=== PATIENT | male | born 1970 | race Caucasian/White ===

== ENCOUNTER 2016-11-21 19:28 | Emergency (ER) | payer OTHER ==
--- NOTE | 2016-11-21 20:08 | DIAGNOSTIC IMAGING REPORT ---
PROCEDURE: XR CHEST 1 VIEW INDICATION: CHEST PAIN, initial encounter TECHNIQUE: Portable AP view 07:50 p.m. COMPARISON: None. FINDINGS: Lungs are clear. Heart and mediastinum are normal. Thorax is normal. IMPRESSION: 1. Negative chest.
--- NOTE | 2016-11-21 21:14 | DIAGNOSTIC IMAGING REPORT ---
PROCEDURE: CTA THORAX ABDOMEN PELVIS INDICATION: Back and chest pain x 3 days with syncope, initial encounter. TECHNIQUE: 116 ml of Isovue 370 injected intravenously and axial images were obtained of the entire thorax, abdomen, and pelvis with 3D MIP sagittal and coronal reformations. COMPARISON: Chest x-ray 11/21/2016 FINDINGS: THORAX: Minor atherosclerosis of the aorta. No dissection or aneurysm. No evidence of pulmonary emboli. Lungs are clear. No adenopathy or effusion. Mild degenerative changes of the spine. ABDOMEN: Liver, gallbladder, pancreas, spleen, adrenal glands and kidneys are normal. Nonspecific bowel gas pattern. Bones are unremarkable. PELVIS: Minor atherosclerosis of the iliac vessels without dissection or aneurysm. Markedly distended bladder. Normal prostate. Bones are unremarkable. IMPRESSION: 1. Minor atherosclerosis without aneurysm or dissection 2. Markedly distended bladder 3. Results discussed with Dr. Richmond All CT scans at this facility use dose modulation, iterative reconstruction, and/or weight-based dosing when appropriate to reduce radiation dose to as low as reasonably achievable.
--- NOTE | 2016-11-21 22:08 | DIAGNOSTIC IMAGING REPORT ---
PROCEDURE: CT HEAD WITHOUT CONTRAST INDICATION: HEADACHE TECHNIQUE: Axial images with sagittal and coronal re-formations obtained after contrast enhanced CT chest/abdomen/pelvis. COMPARISON: None. FINDINGS: Sulci, ventricular system, and brain parenchyma are normal. Presence of IV contrast precludes exclusion of hemorrhage but there is no evidence of mass, midline shift or abnormal enhancement. Visualized mastoids and sinuses are clear. IMPRESSION: 1. Negative enhanced head CT. 2. Findings discussed with Dr. Richmond at 10:06 p.m., [place] Standard Time
--- NOTE | 2016-11-21 23:30 | ED CLINICAL REPORT ---
Clinical Report - Physicians/Mid Levels [facility] [address] [place] [address] 11/21/2016 19:27 Patient: DARIA VANG Time Seen: 19:34. Arrived- By private vehicle. Historian- patient and EMS personnel (reviewed EMS note). HISTORY OF PRESENT ILLNESS Chief Complaint: CHEST PAIN. Severity: Chest 4. Modifying factors. Not worsened by anything. Not relieved by anything. (4 pm tight in chest, weak and light headed. I didn't feel normal Definite syncope - lasting 2 minutes no injury Pt received ASA and NTG by paramedics). Is still present. It has been constant and waxing/waning. Onset during light activity. It is described as pressure and it is described as located in the central chest area. No nausea. He has had difficulty breathing. No additional chest pain. (Upper lumbar back pain x 3 days.). Similar symptoms previously: None. REVIEW OF SYSTEMS No fever, chills, cough, pedal edema or calf pain. No sore throat, blurred vision, abdominal pain, black stools or difficulty with urination. No skin rash, enlarged lymph nodes, joint pain or bloody stools. The patient experienced syncope; and has had a headache and back pain. PAST HISTORY PCP: Hans SHAFER DM, Renal, Retinopathy Ops: Appy, L knee, L shoulder x 2, Hosp: November 2015 Chest pain ([place]) Stress test supposedly negative. DKA - 2013 approx. SOCIAL HISTORY Former smoker, end date 2007. ADDITIONAL NOTES The nursing notes have been reviewed. PHYSICAL EXAM Appearance: Alert. No acute distress. Eyes: Pupils equal, round and reactive to light. ENT: Pharynx normal. Neck: Normal inspection. Neck supple. CVS: Normal heart rate and rhythm. Heart sounds normal. Respiratory: No respiratory distress. Breath sounds normal. Chest nontender. Abdomen: Soft and nontender. Bowel sounds normal. Back: Normal external inspection. Skin: Skin warm. Normal skin color. Extremities: Extremities exhibit normal ROM. No lower extremity edema. Neuro: No alteration in mental status. No motor deficit. No sensory deficit. LABS, X-RAYS, AND EKG EKG: Tachycardia. Sinus tachycardia. Normal P waves. Normal HIMA. Normal QRS complex. Normal axis. Normal ST and T waves and QT. Prior EKG unavailable. EKG #2: No acute process. No acute ischemia. Narrow-complex tachycardia (108). Sinus tachycardia. Normal P waves. Normal HIMA. Normal QRS complex. Normal axis. Normal ST and T waves. EKG unchanged when compared with prior EKG. The study has been independently viewed by me. EKG #3: No acute ischemia. Tachycardia. Normal P waves. Normal HIMA. Normal QRS complex. Normal axis. Normal ST and T waves and QT. EKG unchanged when compared with prior EKG. The study has been independently viewed by me. The EKG appears to be a good tracing. CT Head: (PROCEDURE: CT HEAD WITHOUT CONTRAST INDICATION: HEADACHE TECHNIQUE: Axial images with sagittal and coronal re-formations obtained after contrast enhanced CT chest/abdomen/pelvis. COMPARISON: None. FINDINGS: Sulci, ventricular system, and brain parenchyma are normal. Presence of IV contrast precludes exclusion of hemorrhage but there is no evidence of mass, midline shift or abnormal enhancement. Visualized mastoids and sinuses are clear. IMPRESSION: 1. Negative enhanced head CT. 2. Findings discussed with Dr. Richmond at 10:06 p.m.[facility] Time Electronically Final signed by:Giovanny Potter MD 11/21/2016 10:08:16 PM). The study was interpreted by the radiologist and discussed with the radiologist. Laboratory Tests: CBC w Diff: (ARLEEN: 11/21/2016 19:30) ( MsgRcvd 11/21/2016 20:03) Final results Test Result Flag Units (Reference) WHITE BLOOD COUNT 5.6 K/uL (4.5-11.5) RED BLOOD COUNT 5.22 M/uL (4.50-5.90) HEMOGLOBIN 14.6 gm/dL (13.5-17.5) HEMATOCRIT 43.4 % (41.0-53.0) MEAN CELL VOLUME 83 fL (80-100) MEAN CORPUSCULAR HGB 28 pg (26-34) MEAN CORPUSCULAR HGB CONC 34 g/dL (31-37) RED CELL DISTRIBUTION WIDTH 13.8 % (11.6-14.8) PLATELET COUNT 198 K/uL (150-400) NEUTROPHIL % 60.3 % (50-75) LYMPH % 29.3 % (25-40) MONO % 8.4 % (3-14) EOSINOPHIL % 1.5 % (0-4) BASOPHIL % 0.5 % (0-2) [id number]: (ARLEEN: 11/21/2016 19:35) ( [facility] 11/21/2016 21:25) Final results Test Result Flag Units (Reference) D-DIMER QUANTITATIVE < 0.27 L ug/mLFEU (0.27-0.52) The primary value of this quantitative assay relates toits negative predictive value (i.e. exclusion) of pulmonaryembolism/deep vein thrombosis/DIC.Elevated levels of d-dimer may also occur with:, age, cancer, inflammation, liver disease,post-op, infection, hematoma, coronary disease, peripheralarteriopathy, bleeding disorders and thrombolytic treatment.Results should be correlated with other clinical andradiological data.Testing Methodology: Latex Immunoassay Troponin-I: (ARLEEN: 11/21/2016 23:50) ( [facility] 11/22/2016 00:24) Final results Test Result Flag Units (Reference) TROPONIN I <0.05 L ng/mL (0.00-1.5) TROPONIN REFERENCE RANGE:<0.1 NEGATIVE0.1-1.5 INDETERMINANT>1.5 POSITIVE CPK: (ARLEEN: 11/21/2016 19:30) ( [facility] 11/21/2016 20:24) Final results Test Result Flag Units (Reference) CPK 129 U/L (24-260) TROPONIN I <0.05 L ng/mL (0.00-1.5) TROPONIN REFERENCE RANGE:<0.1 NEGATIVE0.1-1.5 INDETERMINANT>1.5 POSITIVE CMP: (ARLEEN: 11/21/2016 19:30) ( MsgRcvd 11/21/2016 20:13) Final results Test Result Flag Units (Reference) GLUCOSE 480 H mg/dL (70-110) BUN 16 mg/dL (7-18) CREATININE 1.1 mg/dL (0.6-1.3) Estimated GFR >60 mL/min Estimated GFR- >60 mL/min Note: Persistent reduction over 3 months in eGFR<60 mL/min/1.73 m2 defines CKD. Patients with eGFR values>=60 mL/min/1.73 m2 may also have CKD if evidence ofpersistent proteinuria. Additional information may be foundat [email or web address]. SODIUM 136 mmol/L (136-145) POTASSIUM 4.2 mmol/L (3.5-5.1) CHLORIDE 99 mmol/L (98-107) CARBON DIOXIDE 27 mmol/L (21-32) CALCIUM 8.9 mg/dL (8.5-10.1) TOTAL PROTEIN 7.2 g/dL (6.4-8.2) ALBUMIN 3.4 g/dL (3.3-5.0) BILIRUBIN, TOTAL 0.2 mg/dL (0.0-1.0) ALKALINE PHOSPHATASE 89 U/L (46-116) AST (SGOT) 31 U/L (15-37) ALT (SGPT) 73 U/L (12-78) LIPASE 130 U/L (73-393) AMYLASE 27 U/L (25-115) . Note - Tests: (PROCEDURE: CTA THORAX ABDOMEN PELVIS INDICATION: Back and chest pain x 3 days with syncope, initial encounter. TECHNIQUE: 116 ml of Isovue 370 injected intravenously and axial images were obtained of the entire thorax, abdomen, and pelvis with 3D MIP sagittal and coronal reformations. COMPARISON: Chest x-ray 11/21/2016 FINDINGS: THORAX: Minor atherosclerosis of the aorta. No dissection or aneurysm. No evidence of pulmonary emboli. Lungs are clear. No adenopathy or effusion. Mild degenerative changes of the spine. ABDOMEN: Liver, gallbladder, pancreas, spleen, adrenal glands and kidneys are normal. Nonspecific bowel gas pattern. Bones are unremarkable. PELVIS: Minor atherosclerosis of the iliac vessels without dissection or aneurysm. Markedly distended bladder. Normal prostate. Bones are unremarkable. IMPRESSION: 1. Minor atherosclerosis without aneurysm or dissection 2. Markedly distended bladder 3. Results discussed with Dr. Richmond All CT scans at this facility use dose modulation, iterative reconstruction, and/or weight-based dosing when appropriate to reduce radiation dose to as low as reasonably achievable.). PROGRESS AND PROCEDURES Course of Care: DDX: Chest pain Possible ACS No Thoracic aortic dissection by CT No pneumothorax or esophageal rupture No PE by Ddimer and CT Syncope - no clear cut cause 20:20 11/21/16. PAIGE 8 and Back, Chest 4 21:28 11/21/16. Discussed with Dr Bonilla [facility] hospitalist. To do at this point. CT Head and additional EKG. Problematic for [facility] admit at this point is the difficulty of obtaining timely stress testing. 22:42 11/21/16. Dr Ernie Jay Epro. Endorses prov 23:09 11/21/16. Dr Olivares ([place]) has spoken to Dr England at [facility]. Dr England will accept the patient in transport. Bed number is pending and [place] will arrange transport. 23:11 11/21/16. Chest pressure is a bit worse 5-6/10 Headache and back pain are worse. Will recheck EKG #3 and will give dilaudid. NTG paste is in place. Will draw Troponin #2 CTs pushed to [facility]. Critical care performed (55 minutes). Time is exclusive of separately billable procedures. Time includes: direct patient care, patient reassessment, coordination of patient care, interpretation of data (laboratory data, chest xrays, prior electrocardiograms and cardiac output measurements), medical consultation and documentation of patient care- see progress notes. CLINICAL IMPRESSION CHEST PAIN SYNCOPE HEADACHE BACK PAIN. DIABETES with initial poor control. (Electronically signed by Ronni Richmond MD 11/23/2016 12:18)
--- NOTE | 2016-11-21 23:30 | ED CLINICAL REPORT ---
Clinical Report - Physicians/Mid Levels [facility] [address] [place] [address] 11/21/2016 19:27 Patient: DARIA VANG Time Seen: 19:34. Arrived- By private vehicle. Historian- patient and EMS personnel (reviewed EMS note). HISTORY OF PRESENT ILLNESS Chief Complaint: CHEST PAIN. Severity: Chest 4. Modifying factors. Not worsened by anything. Not relieved by anything. (4 pm tight in chest, weak and light headed. I didn't feel normal Definite syncope - lasting 2 minutes no injury Pt received ASA and NTG by paramedics). Is still present. It has been constant and waxing/waning. Onset during light activity. It is described as pressure and it is described as located in the central chest area. No nausea. He has had difficulty breathing. No additional chest pain. (Upper lumbar back pain x 3 days.). Similar symptoms previously: None. REVIEW OF SYSTEMS No fever, chills, cough, pedal edema or calf pain. No sore throat, blurred vision, abdominal pain, black stools or difficulty with urination. No skin rash, enlarged lymph nodes, joint pain or bloody stools. The patient experienced syncope; and has had a headache and back pain. PAST HISTORY PCP: Hans SHAFER DM, Renal, Retinopathy Ops: Appy, L knee, L shoulder x 2, Hosp: November 2015 Chest pain ([place]) Stress test supposedly negative. DKA - 2013 approx. SOCIAL HISTORY Former smoker, end date 2007. ADDITIONAL NOTES The nursing notes have been reviewed. PHYSICAL EXAM Appearance: Alert. No acute distress. Eyes: Pupils equal, round and reactive to light. ENT: Pharynx normal. Neck: Normal inspection. Neck supple. CVS: Normal heart rate and rhythm. Heart sounds normal. Respiratory: No respiratory distress. Breath sounds normal. Chest nontender. Abdomen: Soft and nontender. Bowel sounds normal. Back: Normal external inspection. Skin: Skin warm. Normal skin color. Extremities: Extremities exhibit normal ROM. No lower extremity edema. Neuro: No alteration in mental status. No motor deficit. No sensory deficit. LABS, X-RAYS, AND EKG EKG: Tachycardia. Sinus tachycardia. Normal P waves. Normal HIMA. Normal QRS complex. Normal axis. Normal ST and T waves and QT. Prior EKG unavailable. EKG #2: No acute process. No acute ischemia. Narrow-complex tachycardia (108). Sinus tachycardia. Normal P waves. Normal HIMA. Normal QRS complex. Normal axis. Normal ST and T waves. EKG unchanged when compared with prior EKG. The study has been independently viewed by me. EKG #3: No acute ischemia. Tachycardia. Normal P waves. Normal HIMA. Normal QRS complex. Normal axis. Normal ST and T waves and QT. EKG unchanged when compared with prior EKG. The study has been independently viewed by me. The EKG appears to be a good tracing. CT Head: (PROCEDURE: CT HEAD WITHOUT CONTRAST INDICATION: HEADACHE TECHNIQUE: Axial images with sagittal and coronal re-formations obtained after contrast enhanced CT chest/abdomen/pelvis. COMPARISON: None. FINDINGS: Sulci, ventricular system, and brain parenchyma are normal. Presence of IV contrast precludes exclusion of hemorrhage but there is no evidence of mass, midline shift or abnormal enhancement. Visualized mastoids and sinuses are clear. IMPRESSION: 1. Negative enhanced head CT. 2. Findings discussed with Dr. Richmond at 10:06 p.m.[facility] Time Electronically Final signed by:Giovanny Potter MD 11/21/2016 10:08:16 PM). The study was interpreted by the radiologist and discussed with the radiologist. Laboratory Tests: CBC w Diff: (ARLEEN: 11/21/2016 19:30) ( MsgRcvd 11/21/2016 20:03) Final results Test Result Flag Units (Reference) WHITE BLOOD COUNT 5.6 K/uL (4.5-11.5) RED BLOOD COUNT 5.22 M/uL (4.50-5.90) HEMOGLOBIN 14.6 gm/dL (13.5-17.5) HEMATOCRIT 43.4 % (41.0-53.0) MEAN CELL VOLUME 83 fL (80-100) MEAN CORPUSCULAR HGB 28 pg (26-34) MEAN CORPUSCULAR HGB CONC 34 g/dL (31-37) RED CELL DISTRIBUTION WIDTH 13.8 % (11.6-14.8) PLATELET COUNT 198 K/uL (150-400) NEUTROPHIL % 60.3 % (50-75) LYMPH % 29.3 % (25-40) MONO % 8.4 % (3-14) EOSINOPHIL % 1.5 % (0-4) BASOPHIL % 0.5 % (0-2) [id number]: (ARLEEN: 11/21/2016 19:35) ( [facility] 11/21/2016 21:25) Final results Test Result Flag Units (Reference) D-DIMER QUANTITATIVE < 0.27 L ug/mLFEU (0.27-0.52) The primary value of this quantitative assay relates toits negative predictive value (i.e. exclusion) of pulmonaryembolism/deep vein thrombosis/DIC.Elevated levels of d-dimer may also occur with:, age, cancer, inflammation, liver disease,post-op, infection, hematoma, coronary disease, peripheralarteriopathy, bleeding disorders and thrombolytic treatment.Results should be correlated with other clinical andradiological data.Testing Methodology: Latex Immunoassay Troponin-I: (ARLEEN: 11/21/2016 23:50) ( [facility] 11/22/2016 00:24) Final results Test Result Flag Units (Reference) TROPONIN I <0.05 L ng/mL (0.00-1.5) TROPONIN REFERENCE RANGE:<0.1 NEGATIVE0.1-1.5 INDETERMINANT>1.5 POSITIVE CPK: (ARLEEN: 11/21/2016 19:30) ( [facility] 11/21/2016 20:24) Final results Test Result Flag Units (Reference) CPK 129 U/L (24-260) TROPONIN I <0.05 L ng/mL (0.00-1.5) TROPONIN REFERENCE RANGE:<0.1 NEGATIVE0.1-1.5 INDETERMINANT>1.5 POSITIVE CMP: (ARLEEN: 11/21/2016 19:30) ( MsgRcvd 11/21/2016 20:13) Final results Test Result Flag Units (Reference) GLUCOSE 480 H mg/dL (70-110) BUN 16 mg/dL (7-18) CREATININE 1.1 mg/dL (0.6-1.3) Estimated GFR >60 mL/min Estimated GFR- >60 mL/min Note: Persistent reduction over 3 months in eGFR<60 mL/min/1.73 m2 defines CKD. Patients with eGFR values>=60 mL/min/1.73 m2 may also have CKD if evidence ofpersistent proteinuria. Additional information may be foundat [email or web address]. SODIUM 136 mmol/L (136-145) POTASSIUM 4.2 mmol/L (3.5-5.1) CHLORIDE 99 mmol/L (98-107) CARBON DIOXIDE 27 mmol/L (21-32) CALCIUM 8.9 mg/dL (8.5-10.1) TOTAL PROTEIN 7.2 g/dL (6.4-8.2) ALBUMIN 3.4 g/dL (3.3-5.0) BILIRUBIN, TOTAL 0.2 mg/dL (0.0-1.0) ALKALINE PHOSPHATASE 89 U/L (46-116) AST (SGOT) 31 U/L (15-37) ALT (SGPT) 73 U/L (12-78) LIPASE 130 U/L (73-393) AMYLASE 27 U/L (25-115) . Note - Tests: (PROCEDURE: CTA THORAX ABDOMEN PELVIS INDICATION: Back and chest pain x 3 days with syncope, initial encounter. TECHNIQUE: 116 ml of Isovue 370 injected intravenously and axial images were obtained of the entire thorax, abdomen, and pelvis with 3D MIP sagittal and coronal reformations. COMPARISON: Chest x-ray 11/21/2016 FINDINGS: THORAX: Minor atherosclerosis of the aorta. No dissection or aneurysm. No evidence of pulmonary emboli. Lungs are clear. No adenopathy or effusion. Mild degenerative changes of the spine. ABDOMEN: Liver, gallbladder, pancreas, spleen, adrenal glands and kidneys are normal. Nonspecific bowel gas pattern. Bones are unremarkable. PELVIS: Minor atherosclerosis of the iliac vessels without dissection or aneurysm. Markedly distended bladder. Normal prostate. Bones are unremarkable. IMPRESSION: 1. Minor atherosclerosis without aneurysm or dissection 2. Markedly distended bladder 3. Results discussed with Dr. Richmond All CT scans at this facility use dose modulation, iterative reconstruction, and/or weight-based dosing when appropriate to reduce radiation dose to as low as reasonably achievable.). PROGRESS AND PROCEDURES Course of Care: DDX: Chest pain Possible ACS No Thoracic aortic dissection by CT No pneumothorax or esophageal rupture No PE by Ddimer and CT Syncope - no clear cut cause 20:20 11/21/16. PAIGE 8 and Back, Chest 4 21:28 11/21/16. Discussed with Dr Bonilla [facility] hospitalist. To do at this point. CT Head and additional EKG. Problematic for [facility] admit at this point is the difficulty of obtaining timely stress testing. 22:42 11/21/16. Dr Ernie Jay Epro. Endorses prov 23:09 11/21/16. Dr Olivares ([place]) has spoken to Dr England at [facility]. Dr England will accept the patient in transport. Bed number is pending and [place] will arrange transport. 23:11 11/21/16. Chest pressure is a bit worse 5-6/10 Headache and back pain are worse. Will recheck EKG #3 and will give dilaudid. NTG paste is in place. Will draw Troponin #2 CTs pushed to [place]. Critical care performed (55 minutes). Time is exclusive of separately billable procedures. Time includes: direct patient care, patient reassessment, coordination of patient care, interpretation of data (laboratory data, chest xrays, prior electrocardiograms and cardiac output measurements), medical consultation and documentation of patient care- see progress notes. CLINICAL IMPRESSION CHEST PAIN SYNCOPE HEADACHE BACK PAIN. DIABETES with initial poor control. (Electronically signed by Ronni Richmond MD 11/23/2016 12:18)
--- NOTE | 2016-11-21 23:30 | ED NURSING NOTES ---
Clinical Report - Nurses [facility] [address] [place] [address] 11/21/2016 19:27 [id number] Triage time 19:30 Nov 21 2016. Acuity: LEVEL 3. Chief Complaint: CHEST PAIN. --19:33 Ovidio Ibarra R.N. 19:30 11/21/16. BP: 130/80. HR: 124. RR: 18. O2 saturation: 96%. Temp: 98.5 F. Pain level now 12/28. --19:33 Ovidio Ibarra R.N. Weight: 113.3 kg. Height/Length: 70 inches. BMI: 35.8. --19:32 Ovidio Ibarra R.N. Medications HumuLIN N Subcutaneous. --19:31 Ovidio Ibarra R.N. humal. --19:31 Ovidio Ibarra R.N. HumaLOG Subcutaneous. --19:31 Ovidio Ibarra R.N. Lisinopril Oral. --19:31 Ovidio Ibarra R.N. PARoxetine HCl Oral. --19:31 Ovidio Ibarra R.N. Omeprazole Oral. --19:32 Ovidio Ibarra R.N. Allergies Phenergan. --19:32 Ovidio Ibarra R.N. History Arrived by private vehicle. ( pt witnessed syncopal event, cbg per medic 470). This started just prior to arrival. 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 SOCIAL HX: Never smoker. No alcohol use or drug use. --19:33 Ovidio Ibarra R.N. Interventions ID band on patient. To treatment room. --19:33 Ovidio Ibarra R.N. PHYSICAL ASSESSMENT GENERAL / NEURO / PSYCH: Alert. Oriented X 4. Appears in pain. RESPIRATORY: Respirations not labored. Breath sounds within normal limits. CVS: Normal sinus rhythm noted. GI / : Abdomen nontender. ( abd distended). EXTREMITIES: No lower extremity edema. SKIN: Skin is warm and dry. Skin is non-tender. --20:12 Ovidio Ibarra R.N. ( assessment performed at time of triage, back charted). --20:13 Ovidio Ibarra R.N. NURSING PROGRESS NOTES 19:34 11/21/2016 Site #1 started prior to arrival by EMS via IV with an 20g angiocath, with aseptic technique and good blood return; one attempt. Blood drawn: rainbow set. Labeled in the presence of the patient. Saline lock flushed. --19:34 Ovidio Ibarra R.N. 19:50 11/21/2016 Started bag #1 1000 mL IV Fluids IV NS (Saline); at 100 mL/hr over 10 hour(s) via site #1. Allergies verified and confirmed 5 rights. IV patency established. IV site checked: no pain, redness, or swelling. IV flushed thoroughly pre- and post-medication administration. Completed per protocol. --19:50 Ovidio Ibarra R.N. EKG time: (1936 PM). EKG was ordered, performed by a tech and shown to the ED physician. --20:06 Verna Yuen Finger stick glucose: 417 mg/dL @ 1940. --20:06 Verna Yuen 20:11 11/21/16. BP: 118/64. HR: 117. O2 saturation: 97%. --20:12 Ovidio Ibarra R.N. 20:24 11/21/2016 Site #2 started via IV in the left antecubital space with an 18g angiocath, with aseptic technique and good blood return; one attempt. Saline lock flushed with saline. --20:24 Ovidio Ibarra R.N. 20:40 11/21/2016 Zofran (Ondansetron HCl) IVP 4 mg given. via site #1. Allergies verified and confirmed 5 rights. IV patency established. IV site checked: no pain, redness, or swelling. IV flushed thoroughly pre- and post-medication administration. IVP given by RN. --20:40 Ovidio Ibarra R.N. 20:40 11/21/2016 Insulin REG IVP 8 unit given over 2 minute(s) via site #1. Allergies verified and confirmed 5 rights. IV patency established. IV site checked: no pain, redness, or swelling. IV flushed thoroughly pre- and post-medication administration. IVP given by RN (dose confirmed by KRISTAN devine). --20:40 Ovidio Ibarra R.N. 20:40 11/21/2016 Dilaudid (HYDROmorphone HCl PF) IVP 1 mg given over 2 minute(s) via site #1. Allergies verified, confirmed 5 rights and sedative warning given to the patient. IV patency established. IV site checked: no pain, redness, or swelling. IV flushed thoroughly pre- and post-medication administration. IVP given by RN. --20:40 Ovidio Ibarra R.N. 20:10 11/21/16. BP: 122/69. HR: 113. RR: 18. O2 saturation: 98%. --20:42 Ovidio Ibarra R.N. 20:46 11/21/2016 Insulin REG IVP Co-signature: dosage, concentration and rate verified. --20:46 Luis Fernando Renee R.N. Finger stick glucose: 312 21:15 Nov 21 2016. --21:15 Ovidio Ibarra R.N. 21:15 11/21/16. BP: 134/82. HR: 111. O2 saturation: 95%. --21:15 Ovidio Ibarra R.N. 21:25 11/21/2016 Dilaudid (HYDROmorphone HCl PF) IVP 0.5 mg given over 2 minute(s) via site #2. Allergies verified, confirmed 5 rights and sedative warning given to the patient. IV patency established. IV site checked: no pain, redness, or swelling. IV flushed thoroughly pre- and post-medication administration. IVP given by RN. --21:25 Ovidio Ibarra R.N. EKG time: (2nd EKG @ 2142 PM). EKG was ordered, performed by a tech and shown to the ED physician. --21:43 Verna Yuen 22:00 11/21/16. BP: 155/75. HR: 108. O2 saturation: 95%. --22:00 Ovidio Ibarra R.N. 22:00 11/21/2016 NITROGLYCERIN PASTE Topical 1 inch. Applied to the left chest. Allergies verified and confirmed 5 rights. --22:00 Ovidio Ibarra R.N. 22:00 11/21/16. BP: 130/65. RR: 109. O2 saturation: 97%. --22:01 Ovidio Ibarra R.N. 22:05 11/21/16. BP: 132/69. --22:06 Ovidio Ibarra R.N. 22:59 11/21/16. BP: 113/59. HR: 110. O2 saturation: 94%. --23:00 Ovidio Ibarra R.N. 22:45 11/21/2016 Site #1 removed. Bandaid applied (iv became dislodged after transfer from sd). --23:10 Ovidio Ibarra R.N. 23:10 11/21/2016 Dilaudid (HYDROmorphone HCl PF) IVP 0.5 mg given over 2 minute(s) via site #2. Allergies verified, confirmed 5 rights and sedative warning given to the patient. IV patency established. IV site checked: no pain, redness, or swelling. IV flushed thoroughly pre- and post-medication administration. IVP given by RN. --23:10 Ovidio Ibarra R.N. EKG time: (2321 PM). EKG was ordered, performed by a tech and shown to the ED physician. ( 3rd EKG). --23:22 Verna Yuen Finger stick glucose: 344 mg/dL 00:00. --00:04 Verna Yuen. DISPOSITION / DISCHARGE Report was given to a nurse via a phone call. Report included patient's care, treatment, medications, reviewed medication reconcilliation, and condition (including any recent changes or anticipated changes). All questions were answered. Report was acknowledged. (report to KRISTAN Austin). Patient's personal items include: shirt and pants, cellphone; items were placed in belongings bag. --00:01 Ovidio Ibarra R.N. ( CBG 344). --00:03 Ovidio Ibarra R.N. 00:02 11/22/16. BP: 120/69. HR: 102. RR: 18. O2 saturation: 95%. Temp: 98.2 F. Pain level now 01/27. --00:03 Ovidio Ibarra R.N. Departure time: 0025. ( ems arrived to transport pt). --00:27 Ovidio Ibarra R.N. Locked/Released at 11/22/2016 2:22 by Channing Brar R.N.
--- NOTE | 2016-11-21 23:30 | ED NURSING NOTES ---
Clinical Report - Nurses [facility] [address] [place] [address] 11/21/2016 19:27 [id number] Triage time 19:30 Nov 21 2016. Acuity: LEVEL 3. Chief Complaint: CHEST PAIN. --19:33 Ovidio Ibarra R.N. 19:30 11/21/16. BP: 130/80. HR: 124. RR: 18. O2 saturation: 96%. Temp: 98.5 F. Pain level now 12/28. --19:33 Ovidio Ibarra R.N. Weight: 113.3 kg. Height/Length: 70 inches. BMI: 35.8. --19:32 Ovidio Ibarra R.N. Medications HumuLIN N Subcutaneous. --19:31 Ovidio Ibarra R.N. humal. --19:31 Ovidio Ibarra R.N. HumaLOG Subcutaneous. --19:31 Ovidio Ibarra R.N. Lisinopril Oral. --19:31 Ovidio Ibarra R.N. PARoxetine HCl Oral. --19:31 Ovidio Ibarra R.N. Omeprazole Oral. --19:32 Ovidio Ibarra R.N. Allergies Phenergan. --19:32 Ovidio Ibarra R.N. History Arrived by private vehicle. ( pt witnessed syncopal event, cbg per medic 470). This started just prior to arrival. 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 SOCIAL HX: Never smoker. No alcohol use or drug use. --19:33 Ovidio Ibarra R.N. Interventions ID band on patient. To treatment room. --19:33 Ovidio Ibarra R.N. PHYSICAL ASSESSMENT GENERAL / NEURO / PSYCH: Alert. Oriented X 4. Appears in pain. RESPIRATORY: Respirations not labored. Breath sounds within normal limits. CVS: Normal sinus rhythm noted. GI / : Abdomen nontender. ( abd distended). EXTREMITIES: No lower extremity edema. SKIN: Skin is warm and dry. Skin is non-tender. --20:12 Ovidio Ibarra R.N. ( assessment performed at time of triage, back charted). --20:13 Ovidio Ibarra R.N. NURSING PROGRESS NOTES 19:34 11/21/2016 Site #1 started prior to arrival by EMS via IV with an 20g angiocath, with aseptic technique and good blood return; one attempt. Blood drawn: rainbow set. Labeled in the presence of the patient. Saline lock flushed. --19:34 Ovidio Ibarra R.N. 19:50 11/21/2016 Started bag #1 1000 mL IV Fluids IV NS (Saline); at 100 mL/hr over 10 hour(s) via site #1. Allergies verified and confirmed 5 rights. IV patency established. IV site checked: no pain, redness, or swelling. IV flushed thoroughly pre- and post-medication administration. Completed per protocol. --19:50 Ovidio Ibarra R.N. EKG time: (1936 PM). EKG was ordered, performed by a tech and shown to the ED physician. --20:06 Verna Yuen Finger stick glucose: 417 mg/dL @ 1940. --20:06 Verna Yuen 20:11 11/21/16. BP: 118/64. HR: 117. O2 saturation: 97%. --20:12 Ovidio Ibarra R.N. 20:24 11/21/2016 Site #2 started via IV in the left antecubital space with an 18g angiocath, with aseptic technique and good blood return; one attempt. Saline lock flushed with saline. --20:24 Ovidio Ibarra R.N. 20:40 11/21/2016 Zofran (Ondansetron HCl) IVP 4 mg given. via site #1. Allergies verified and confirmed 5 rights. IV patency established. IV site checked: no pain, redness, or swelling. IV flushed thoroughly pre- and post-medication administration. IVP given by RN. --20:40 Ovidio Ibarra R.N. 20:40 11/21/2016 Insulin REG IVP 8 unit given over 2 minute(s) via site #1. Allergies verified and confirmed 5 rights. IV patency established. IV site checked: no pain, redness, or swelling. IV flushed thoroughly pre- and post-medication administration. IVP given by RN (dose confirmed by KRISTAN devine). --20:40 Ovidio Ibarra R.N. 20:40 11/21/2016 Dilaudid (HYDROmorphone HCl PF) IVP 1 mg given over 2 minute(s) via site #1. Allergies verified, confirmed 5 rights and sedative warning given to the patient. IV patency established. IV site checked: no pain, redness, or swelling. IV flushed thoroughly pre- and post-medication administration. IVP given by RN. --20:40 Ovidio Ibarra R.N. 20:10 11/21/16. BP: 122/69. HR: 113. RR: 18. O2 saturation: 98%. --20:42 Ovidio Ibarra R.N. 20:46 11/21/2016 Insulin REG IVP Co-signature: dosage, concentration and rate verified. --20:46 Luis Fernando Renee R.N. Finger stick glucose: 312 21:15 Nov 21 2016. --21:15 Ovidio Ibarra R.N. 21:15 11/21/16. BP: 134/82. HR: 111. O2 saturation: 95%. --21:15 Ovidio Ibarra R.N. 21:25 11/21/2016 Dilaudid (HYDROmorphone HCl PF) IVP 0.5 mg given over 2 minute(s) via site #2. Allergies verified, confirmed 5 rights and sedative warning given to the patient. IV patency established. IV site checked: no pain, redness, or swelling. IV flushed thoroughly pre- and post-medication administration. IVP given by RN. --21:25 Ovidio Ibarra R.N. EKG time: (2nd EKG @ 2142 PM). EKG was ordered, performed by a tech and shown to the ED physician. --21:43 Verna Yuen 22:00 11/21/16. BP: 155/75. HR: 108. O2 saturation: 95%. --22:00 Ovidio Ibarra R.N. 22:00 11/21/2016 NITROGLYCERIN PASTE Topical 1 inch. Applied to the left chest. Allergies verified and confirmed 5 rights. --22:00 Ovidio Ibarra R.N. 22:00 11/21/16. BP: 130/65. RR: 109. O2 saturation: 97%. --22:01 Ovidio Ibarra R.N. 22:05 11/21/16. BP: 132/69. --22:06 Ovidio Ibarra R.N. 22:59 11/21/16. BP: 113/59. HR: 110. O2 saturation: 94%. --23:00 Ovidio Ibarra R.N. 22:45 11/21/2016 Site #1 removed. Bandaid applied (iv became dislodged after transfer from vt). --23:10 Ovidio Ibarra R.N. 23:10 11/21/2016 Dilaudid (HYDROmorphone HCl PF) IVP 0.5 mg given over 2 minute(s) via site #2. Allergies verified, confirmed 5 rights and sedative warning given to the patient. IV patency established. IV site checked: no pain, redness, or swelling. IV flushed thoroughly pre- and post-medication administration. IVP given by RN. --23:10 Ovidio Ibarra R.N. EKG time: (2321 PM). EKG was ordered, performed by a tech and shown to the ED physician. ( 3rd EKG). --23:22 Verna Yuen Finger stick glucose: 344 mg/dL 00:00. --00:04 Verna Yuen. DISPOSITION / DISCHARGE Report was given to a nurse via a phone call. Report included patient's care, treatment, medications, reviewed medication reconcilliation, and condition (including any recent changes or anticipated changes). All questions were answered. Report was acknowledged. (report to KRISTAN Austin). Patient's personal items include: shirt and pants, cellphone; items were placed in belongings bag. --00:01 Ovidio Ibarra R.N. ( CBG 344). --00:03 Ovidio Ibarra R.N. 00:02 11/22/16. BP: 120/69. HR: 102. RR: 18. O2 saturation: 95%. Temp: 98.2 F. Pain level now 01/27. --00:03 Ovidio Ibarra R.N. Departure time: 0025. ( ems arrived to transport pt). --00:27 Ovidio Ibarra R.N. Locked/Released at 11/22/2016 2:22 by Channing Brar R.N.
--- NOTE | 2016-11-21 23:30 | ED ORDER SUMMARY ---
..... Patient: DARIA VANG OrderSheet [facility] VisitID: [id number] [place] [address] 46y, M Registration Date/Time: 11/21/2016 ORDER SHEET Weight: 113.3 kg Allergies: Phenergan GENERAL ORDERS: CBC w Diff Urgent (19:34 11/21/2016 DBeyer R.N. per protocol) (Ack 19:41 CHagerty ER Slip Tender) CMP Urgent (19:34 11/21/2016 DBeyer R.N. per protocol) (Ack 19:41 CHagerty ER Slip Tender) Amylase Urgent (19:34 11/21/2016 DBeyer R.N. per protocol) (Ack 19:41 CHagerty ER Slip Tender) Lipase Urgent (19:34 11/21/2016 DBeyer R.N. per protocol) (Ack 19:41 CHagerty ER Slip Tender) EKG - ER Stat (19:34 11/21/2016 DBeyer R.N. per protocol) (Ack 19:41 CHagerty ER Slip Tender) (19:54 CHagerty ER Slip Tender) POC Glucose (19:34 11/21/2016 DBeyer R.N. per protocol) (Ack 19:41 CHagerty ER Slip Tender) (21:19 Trever) Troponin-I Urgent (19:35 11/21/2016 Duane VYAS) (Ack 19:41 CHagerty ER Slip Tender) CPK Urgent (19:35 11/21/2016 Duane VYAS) (Ack 19:41 CHagerty ER Slip Tender) Chest 1V Urgent (19:36 11/21/2016 Duane VYAS) (Ack 19:41 CHagerty ER Slip Tender) (19:52 CHagerty ER Slip Tender) CTA Thorax/Abdomen/Pelvis (Yes) (don't know) Urgent (20:11 11/21/2016 Duane VYAS) (Ack 20:12 CHagerty ER Slip Tender) (20:50 omanelli R.N.) D-Dimer Urgent (20:21 11/21/2016 Duane VYAS) (20:27 CHagerty ER Slip Tender) POC Glucose (#2) (21:14 11/21/2016 Duane VYAS) (21:18 DBeyer R.N.) CT Head wo Cont Urgent (21:28 11/21/2016 Duane VYAS) (Ack 21:29 CHagerty ER Slip Tender) (22:27 CHategekimana) EKG - ER Repeat Stat (21:28 11/21/2016 Duane VYAS) (Ack 21:29 CHagerty ER Slip Tender) (21:42 CHategekimana) Troponin-I (repeat, new blood draw.) Urgent (23:12 11/21/2016 Duane VYAS) (Ack 23:15 CHagerty ER Slip Tender) (23:54 CHagerty ER Slip Tender) EKG - ER Repeat (#3) Stat (23:13 11/21/2016 Duane VYAS) (23:15 CHagerty ER Slip Tender) MEDICATION ORDERS: NitroGLYCERIN Paste Topical 1 in. (NOW) (21:34 11/21/2016 Duane VYAS) (22:00 DBeyer R.N.) IV FLUIDS: IV Saline Lock (19:34 11/21/2016 DBeyer R.N. per protocol) (19:34 DBeyer R.N.) IV NS : initial bolus none -, then TKO - (NOW) (19:49 11/21/2016 DBeyer R.N. per protocol) (19:50 DBeyer R.N.) Insulin Reg IV 8 units (HIGH ALERT MEDICATION, NOW) (20:15 11/21/2016 Duane VYAS) (20:40 DBeyer R.N.) Dilaudid IV 1 mg + 0.5 (NOW) (20:19 11/21/2016 Duane VYAS) (20:40 DBeyer R.N.) Zofran IV 4 mg (NOW) (20:20 11/21/2016 Duane VYAS) (20:40 DBeyer R.N.) Dilaudid IV 0.5 mg (HIGH ALERT MEDICATION, NOW) (23:04 11/21/2016 DBeyer R.N. verbal order read back to Duane VYAS) (23:10 DBeyer R.N.) ORDER SHEET NOTES: [Electronically signed by Channing Brar R.N. (02:22 11/22/2016)] [Electronically signed by Ronni Richmond MD (12:18 11/23/2016)] [Electronically locked/signed by Channing Brar R.N. (02:22 11/22/2016)]
--- NOTE | 2016-11-21 23:30 | ED ORDER SUMMARY ---
..... Patient: DARIA VANG OrderSheet [facility] VisitID: [id number] [place] [address] 46y, M Registration Date/Time: 11/21/2016 ORDER SHEET Weight: 113.3 kg Allergies: Phenergan GENERAL ORDERS: CBC w Diff Urgent (19:34 11/21/2016 DBeyer R.N. per protocol) (Ack 19:41 CHagerty ER Assistant Head Cashier) CMP Urgent (19:34 11/21/2016 DBeyer R.N. per protocol) (Ack 19:41 CHagerty ER Assistant Head Cashier) Amylase Urgent (19:34 11/21/2016 DBeyer R.N. per protocol) (Ack 19:41 CHagerty ER Assistant Head Cashier) Lipase Urgent (19:34 11/21/2016 DBeyer R.N. per protocol) (Ack 19:41 CHagerty ER Assistant Head Cashier) EKG - ER Stat (19:34 11/21/2016 DBeyer R.N. per protocol) (Ack 19:41 CHagerty ER Assistant Head Cashier) (19:54 CHagerty ER Assistant Head Cashier) POC Glucose (19:34 11/21/2016 DBeyer R.N. per protocol) (Ack 19:41 CHagerty ER Assistant Head Cashier) (21:19 Trever) Troponin-I Urgent (19:35 11/21/2016 Duane VYAS) (Ack 19:41 CHagerty ER Assistant Head Cashier) CPK Urgent (19:35 11/21/2016 Duane VYAS) (Ack 19:41 CHagerty ER Assistant Head Cashier) Chest 1V Urgent (19:36 11/21/2016 Duane VYAS) (Ack 19:41 CHagerty ER Assistant Head Cashier) (19:52 CHagerty ER Assistant Head Cashier) CTA Thorax/Abdomen/Pelvis (Yes) (don't know) Urgent (20:11 11/21/2016 Duane VYAS) (Ack 20:12 CHagerty ER Assistant Head Cashier) (20:50 omanelli R.N.) D-Dimer Urgent (20:21 11/21/2016 Duane VYAS) (20:27 CHagerty ER Assistant Head Cashier) POC Glucose (#2) (21:14 11/21/2016 Duane VYAS) (21:18 DBeyer R.N.) CT Head wo Cont Urgent (21:28 11/21/2016 Duane VYAS) (Ack 21:29 CHagerty ER Assistant Head Cashier) (22:27 CHategekimana) EKG - ER Repeat Stat (21:28 11/21/2016 Duane VYAS) (Ack 21:29 CHagerty ER Assistant Head Cashier) (21:42 CHategekimana) Troponin-I (repeat, new blood draw.) Urgent (23:12 11/21/2016 Duane VYAS) (Ack 23:15 CHagerty ER Assistant Head Cashier) (23:54 CHagerty ER Assistant Head Cashier) EKG - ER Repeat (#3) Stat (23:13 11/21/2016 Duane VYAS) (23:15 CHagerty ER Assistant Head Cashier) MEDICATION ORDERS: NitroGLYCERIN Paste Topical 1 in. (NOW) (21:34 11/21/2016 Duane VYAS) (22:00 DBeyer R.N.) IV FLUIDS: IV Saline Lock (19:34 11/21/2016 DBeyer R.N. per protocol) (19:34 DBeyer R.N.) IV NS : initial bolus none -, then TKO - (NOW) (19:49 11/21/2016 DBeyer R.N. per protocol) (19:50 DBeyer R.N.) Insulin Reg IV 8 units (HIGH ALERT MEDICATION, NOW) (20:15 11/21/2016 Duane VYAS) (20:40 DBeyer R.N.) Dilaudid IV 1 mg + 0.5 (NOW) (20:19 11/21/2016 Duane VYAS) (20:40 DBeyer R.N.) Zofran IV 4 mg (NOW) (20:20 11/21/2016 Duane VYAS) (20:40 DBeyer R.N.) Dilaudid IV 0.5 mg (HIGH ALERT MEDICATION, NOW) (23:04 11/21/2016 DBeyer R.N. verbal order read back to Duane VYAS) (23:10 DBeyer R.N.) ORDER SHEET NOTES: [Electronically signed by Channing Brar R.N. (02:22 11/22/2016)] [Electronically signed by Ronni Richmond MD (12:18 11/23/2016)] [Electronically locked/signed by Channing Brar R.N. (02:22 11/22/2016)]
--- NOTE | 2016-11-23 12:19 | ED MED RECONCILIATION SUMMARY ---
Patient: DARIA VANG Medication Reconciliation Report [facility] VisitID: [id number] [address] [place] [address] 46y, M Registration Date/Time: 11/21/2016 Weight: 113.3 kg Height/Length: 70 in. BMI: 35.8 ALLERGIES: Phenergan The patient's Home Medications are listed below: THE FOLLOWING MEDICATIONS NEED TO BE RECONCILED: humal HumaLOG Subcutaneous HumuLIN N Subcutaneous Lisinopril Oral Omeprazole Oral PARoxetine HCl Oral The source(s) of the original Home Medication information: Not obtained. The following Medications were given to the patient in the Emergency Department: IV NS IV Fluids bolus 0, then 100 mL/hr, administered: 11/21/2016 7:50:00 PM Zofran [IVP] IVP 4 mg, administered: 11/21/2016 8:40:00 PM Insulin REG [IVP] IVP 8 unit, administered: 11/21/2016 8:40:00 PM Dilaudid [IVP] IVP 1 mg, administered: 11/21/2016 8:40:00 PM Dilaudid [IVP] IVP 0.5 mg, administered: 11/21/2016 9:25:00 PM NITROGLYCERIN PASTE [TOPICAL] Topical 1 in., administered: 11/21/2016 10:00:00 PM Dilaudid [IVP] IVP 0.5 mg, administered: 11/21/2016 11:10:00 PM The following Medications were prescribed to the patient: None.
--- NOTE | 2016-11-23 12:19 | ED MAR SUMMARY ---
..... Medication Administration Record [facility] [address] [place] [address] Patient: DARIA VANG Visit ID: [id number] 46y, M Weight: 113.3 kg Height/Length: 70 in BMI: 35.8 ALLERGIES: Phenergan Start 19:50 11/21/2016 Ovidio Ibarra R.N. Medication Administered: IV NS (SALINE), Dose: IV Fluids over 10 hour(s), Rate: 100 mL/hr, Dispensed: 1000 mL bag, Site: #1. Medication Ordered: IV NS : initial bolus none -, then TKO - (NOW). Given 20:40 11/21/2016 Ovidio Ibarra R.N. Medication Administered: INSULIN REG [IVP], Dose: 8 unit IVP over 2 minute(s), Site: #1. Medication Ordered: Insulin Reg IV 8 units (HIGH ALERT MEDICATION, NOW). Given 20:40 11/21/2016 Ovidio Ibarra R.N. Medication Administered: DILAUDID [IVP] (HYDROMORPHONE HCL PF), Dose: 1 mg IVP over 2 minute(s), Site: #1. Medication Ordered: Dilaudid IV 1 mg + 0.5 (NOW). Given 20:40 11/21/2016 Ovidio Ibarra R.N. Medication Administered: ZOFRAN [IVP] (ONDANSETRON HCL), Dose: 4 mg IVP, Site: #1. Medication Ordered: Zofran IV 4 mg (NOW). Given 21:25 11/21/2016 Ovidio Ibarra R.N. Medication Administered: DILAUDID [IVP] (HYDROMORPHONE HCL PF), Dose: 0.5 mg IVP over 2 minute(s), Site: #2 left AC. Medication Ordered: Dilaudid IV 1 mg + 0.5 (NOW). Given 22:00 11/21/2016 Ovidio Ibarra R.N. Medication Administered: NITROGLYCERIN PASTE [TOPICAL], Dose: 1 in. Topical. Medication Ordered: NitroGLYCERIN Paste Topical 1 in. (NOW). Given 23:10 11/21/2016 Ovidio Ibarra R.N. Medication Administered: DILAUDID [IVP] (HYDROMORPHONE HCL PF), Dose: 0.5 mg IVP over 2 minute(s), Site: #2 left AC. Medication Ordered: Dilaudid IV 0.5 mg (HIGH ALERT MEDICATION, NOW).
--- NOTE | 2016-11-23 12:19 | ED MED RECONCILIATION SUMMARY ---
Patient: DARIA VANG Medication Reconciliation Report [facility] VisitID: [id number] [address] [place] [address] 46y, M Registration Date/Time: 11/21/2016 Weight: 113.3 kg Height/Length: 70 in. BMI: 35.8 ALLERGIES: Phenergan The patient's Home Medications are listed below: THE FOLLOWING MEDICATIONS NEED TO BE RECONCILED: humal HumaLOG Subcutaneous HumuLIN N Subcutaneous Lisinopril Oral Omeprazole Oral PARoxetine HCl Oral The source(s) of the original Home Medication information: Not obtained. The following Medications were given to the patient in the Emergency Department: IV NS IV Fluids bolus 0, then 100 mL/hr, administered: 11/21/2016 7:50:00 PM Zofran [IVP] IVP 4 mg, administered: 11/21/2016 8:40:00 PM Insulin REG [IVP] IVP 8 unit, administered: 11/21/2016 8:40:00 PM Dilaudid [IVP] IVP 1 mg, administered: 11/21/2016 8:40:00 PM Dilaudid [IVP] IVP 0.5 mg, administered: 11/21/2016 9:25:00 PM NITROGLYCERIN PASTE [TOPICAL] Topical 1 in., administered: 11/21/2016 10:00:00 PM Dilaudid [IVP] IVP 0.5 mg, administered: 11/21/2016 11:10:00 PM The following Medications were prescribed to the patient: None.
--- NOTE | 2016-11-23 12:19 | ED DISCHARGE INSTRUCTIONS ---
Patient: DARIA VANG General Instructions [facility] VisitID: [id number] [address] [place] [address] 46y, M Registration Date/Time: 11/21/2016 CHEST PAIN SYNCOPE HEADACHE BACK PAIN. DIABETES with initial poor control. (Electronically signed by Ronni Richmond MD 11/23/2016 12:18)
--- NOTE | 2016-11-23 12:19 | ED MAR SUMMARY ---
..... Medication Administration Record [facility] [address] [place] [address] Patient: DARIA VANG Visit ID: [id number] 46y, M Weight: 113.3 kg Height/Length: 70 in BMI: 35.8 ALLERGIES: Phenergan Start 19:50 11/21/2016 Ovidio Ibarra R.N. Medication Administered: IV NS (SALINE), Dose: IV Fluids over 10 hour(s), Rate: 100 mL/hr, Dispensed: 1000 mL bag, Site: #1. Medication Ordered: IV NS : initial bolus none -, then TKO - (NOW). Given 20:40 11/21/2016 Ovidio Ibarra R.N. Medication Administered: INSULIN REG [IVP], Dose: 8 unit IVP over 2 minute(s), Site: #1. Medication Ordered: Insulin Reg IV 8 units (HIGH ALERT MEDICATION, NOW). Given 20:40 11/21/2016 Ovidio Ibarra R.N. Medication Administered: DILAUDID [IVP] (HYDROMORPHONE HCL PF), Dose: 1 mg IVP over 2 minute(s), Site: #1. Medication Ordered: Dilaudid IV 1 mg + 0.5 (NOW). Given 20:40 11/21/2016 Ovidio Ibarra R.N. Medication Administered: ZOFRAN [IVP] (ONDANSETRON HCL), Dose: 4 mg IVP, Site: #1. Medication Ordered: Zofran IV 4 mg (NOW). Given 21:25 11/21/2016 Ovidio Ibarra R.N. Medication Administered: DILAUDID [IVP] (HYDROMORPHONE HCL PF), Dose: 0.5 mg IVP over 2 minute(s), Site: #2 left AC. Medication Ordered: Dilaudid IV 1 mg + 0.5 (NOW). Given 22:00 11/21/2016 Ovidio Ibarra R.N. Medication Administered: NITROGLYCERIN PASTE [TOPICAL], Dose: 1 in. Topical. Medication Ordered: NitroGLYCERIN Paste Topical 1 in. (NOW). Given 23:10 11/21/2016 Ovidio Ibarra R.N. Medication Administered: DILAUDID [IVP] (HYDROMORPHONE HCL PF), Dose: 0.5 mg IVP over 2 minute(s), Site: #2 left AC. Medication Ordered: Dilaudid IV 0.5 mg (HIGH ALERT MEDICATION, NOW).
--- NOTE | 2016-11-23 12:19 | ED DISCHARGE INSTRUCTIONS ---
Patient: DARIA VANG General Instructions [facility] VisitID: [id number] [address] [place] [address] 46y, M Registration Date/Time: 11/21/2016 CHEST PAIN SYNCOPE HEADACHE BACK PAIN. DIABETES with initial poor control. (Electronically signed by Ronni Richmond MD 11/23/2016 12:18)
== END 2016-11-22 00:25 | disposition short-term general hospital (02) ==
LOC: ED SRH 19:28
DX: R07.9 Chest pain, unspecified (principal); R55 Syncope and collapse; R51 Headache; M54.9 Dorsalgia, unspecified; E11.65 Type 2 diabetes mellitus with hyperglycemia; Z79.4 Long term (current) use of insulin; Z88.8 Allergy status to other drugs, medicaments and biological substances
CPT/HCPCS: 90074; 90100; 90616; 91556; 92235; 92530; 92610; 95059